=== PATIENT | female | born 1970 | race Caucasian/White ===

== ENCOUNTER 2016-04-18 10:06 | Observation (INO) | payer MEDICARE ==
[~2016-04-18 10:06] MED LIST: ALBUTEROL0.63 MG/3 INH; ALPRAZOLAM0.5 MG PO; ALPRAZOLAM1 MG PO; ANAFRANIL 25MG25 MG PO; ASPIR 8181 MG PO; ASPIR-TRIN325 MG PO; AUGMENTIN 875-1 EACH PO; CYMBALTA60 MG PO; DEXILANT60 MG PO; FLEXERIL 10 MG10 MG PO; FLONASE ALLER15.8 ML; HABITROL 21 MG P1 EA TD; IMDUR ER TAB 3030 MG PO; IPRAT-ALBUT 0.5-3 ML INH; LIPITOR TAB 2020 MG PO; MEDROL DOSEPAK 24 MG PO; MEDROL4 MG PO; NASACORT16.9 ML; NITROSTAT 0.40.4 MG SL; OMNICEF 300 MG300 MG PO; PHENERGAN 25 MG25 M1 PO; PLAVIX 75 MG TA75 MG PO; SINGULAIR10 MG PO; TOPAMAX100 MG PO; TOPROL XL 25 MG25 MG PO
[2016-04-18 11:37] LABS: HEMOGLOBIN 11.4 gm/dl (12.3-15.3); RED BLOOD COUNT 4.04 M/UL (4.00-5.10); WHITE BLOOD COUNT 10.2 K/UL (4.5-11.0)
[2016-04-18 11:56] LABS: BUN/CREATININE RATIO 10 (0-10)
[2016-04-18 18:30] LABS: HEMOGLOBIN 11.3 gm/dl (12.3-15.3); RED BLOOD COUNT 4.03 M/UL (4.00-5.10); WHITE BLOOD COUNT 10.4 K/UL (4.5-11.0)
[2016-04-18 19:48] LABS: BUN/CREATININE RATIO 9 (0-10)
[2016-04-19 07:03] LABS: HEMOGLOBIN 11.6 gm/dl (12.3-15.3); RED BLOOD COUNT 4.19 M/UL (4.00-5.10)
[2016-04-19 07:05] LABS: WHITE BLOOD COUNT 13.2 K/UL (4.5-11.0)
[2016-04-19 07:10] LABS: BUN/CREATININE RATIO 9 (0-10)
[2016-04-19] MEDS ORDERED: RANEXA500 MG PO (14:04)
[2016-09-01] MEDS ORDERED: DEXILANT30 MG PO (11:08)
[2016-09-01] MEDS ORDERED: KLONOPIN TAB 00.5 MG PO (11:08)
== END 2016-04-19 14:53 | disposition home or self-care (01) ==
LOC: ER1 10:06 → MED SURG 4 13:45 → ZEROF 13:45 → MED SURG 4 17:01
PROVIDERS: Physician Assistant Medical; ADMIT Hospitalist
DX: R07.89 Other chest pain (principal); M94.0 Chondrocostal junction syndrome [Tietze]; I25.10 Atherosclerotic heart disease of native coronary artery without angina pectoris; I10 Essential (primary) hypertension; E78.5 Hyperlipidemia, unspecified; F41.9 Anxiety disorder, unspecified; K21.9 Gastro-esophageal reflux disease without esophagitis; D64.9 Anemia, unspecified; F17.210 Nicotine dependence, cigarettes, uncomplicated; E66.9 Obesity, unspecified; D72.829 Elevated white blood cell count, unspecified; T38.0X5A Adverse effect of glucocorticoids and synthetic analogues, initial encounter; Z95.1 Presence of aortocoronary bypass graft
CPT/HCPCS: 36415; 71010; 80048; 80053; 82150; 82550; 82553; 83690; 83735; 83874; 83880; 84484; 85025; 85610; 85730; 93005; 96374; 96375; 96376; 99285; G0378; J2270; J2405; J2550; J7050